=== PATIENT | male | born 1975 | race Caucasian/White ===

== ENCOUNTER 2018-03-18 11:10 | Emergency (ER) | payer OTHER ==
[~2018-03-18] VITALS: Ht 167.6 cm; Wt 94.8 kg
[2018-03-18] MEDS ORDERED: PRILOSEC 10MG C10 MG PO (11:20)
[2018-03-18] MEDS ORDERED: ZYRTEC10 M5 PO (11:20)
[2018-03-18 12:05] LABS: ABSOLUTE NEUTROPHILS 3.8 thou/uL (1.4-8.2); MCV 88.3 fL (80.0-100.0)
[2018-03-18 12:07] LABS: ANION GAP 10 mmol/L (7-16); BASOPHILS 0.4 % (0.0-2.0); BUN 13 mg/dL (7-18); CALCIUM 9.4 mg/dL (8.5-10.1); CHLORIDE 104 mmol/L (98-107); CO2 28 mmol/L (21-32); CREATININE 1.1 mg/dL (0.7-1.3); EOSINOPHILS 0.6 % (0.0-3.0); GLUCOSE 101 mg/dL (74-106); HEMATOCRIT 47.7 % (42.0-52.0); HEMOGLOBIN 16.5 gm/dL (14.0-18.0); LYMPHOCYTES 37.5 % (24.0-44.0); MCH 30.5 pg (26.0-34.0); MCHC 34.5 g/dL (28.0-37.0); MONOCYTES 8.3 % (1.0-8.0); PLATELET COUNT 292 thou/uL (150-400); POLYS 53.2 % (36.0-66.0); POTASSIUM 3.7 mmol/L (3.5-5.1); RDW 13.3 % (10.5-14.5); SODIUM 142 mmol/L (136-145); WBC 7.1 thou/uL (4.0-11.0)
[2018-03-18 12:08] LABS: URINE BILIRUBIN NEGATIVE (Negative); URINE BLOOD NEGATIVE (Negative); URINE CLARITY CLEAR; URINE COLOR YELLOW; URINE GLUCOSE-RANDOM* NEGATIVE (Negative); URINE KETONES NEGATIVE (Negative); URINE LEUKOCYTES-REFLEX NEGATIVE (Negative); URINE NITRITE-REFLEX NEGATIVE (Negative); URINE PROTEIN (DIPSTICK) NEGATIVE (Negative); URINE UROBILINOGEN 0.2 E.U./dl (0.2-1.0)
[2018-03-18 12:16] LABS: ALBUMIN 4.1 g/dL (3.4-5.0); MAGNESIUM 2.7 mg/dL (1.8-2.4); SGOT 70 U/L (15-37); SGPT 169 U/L (30-65); TOTAL BILIRUBIN 0.5 mg/dL (<0.1-1.0); TOTAL PROTEIN 8.1 g/dL (6.4-8.2); TROPONIN-I <0.06 ng/mL (<0.06)
[2018-03-18 12:22] LABS: AMP/METHAMP Negative (Negative); BARBITURATES Negative (Negative); BENZODIAZEPINES Negative (Negative); COCAINE Negative (Negative); METHADONE Negative (Negative); OPIATES Negative (Negative); PCP Negative (Negative)
[2018-03-18 13:08] VITALS: BP 110/72
--- NOTE | 2018-03-19 10:41 | EKG ---
[address] [place] [address] ELECTROCARDIOGRAM REPORT Name: SHRADDHA SMILEY Room #: DEP [facility]#: [id number] Admission: 03/18/18 Attend Phys: Discharge: 03/18/18 Date of : 79 Report #: [id number] THIS REPORT FOR: //name// [facility] ED Test Date: 2018-03-18 Test Time: 12:03:39 Pat Name: SHRADDHA SMILEY Department: Room: Gender: M [place] [employer]: [place] : 1975 Requested By: Jose Daniel Shipman Order Number: [id number] MD: Nj Whitney Measurements Intervals Newman Rate: 87 P: 54 IN: 162 QRS: -47 QRSD: 86 T: 30 QT: 358 QTc: 431 Interpretive Statements Sinus rhythm LAD, consider left anterior fascicular block Abnormal R-wave progression, late transition No previous ECG available for comparison Electronically Signed On 03-19-2018 10:40:59 MARKETING INFORMATION COORDINATOR by Nj Whitney [email or web address] <ELECTRONICALLY SIGNED> By: Nj Whitney MD 03/19/18 1040 1203 1203 MD VANESSA Curtis
== END 2018-03-18 13:10 | disposition home or self-care (01) ==
LOC: ER 11:10
PROVIDERS: Emergency Medicine
DX: F10.129 Alcohol abuse with intoxication, unspecified (principal); G47.10 Hypersomnia, unspecified; K21.9 Gastro-esophageal reflux disease without esophagitis; Z90.49 Acquired absence of other specified parts of digestive tract; Y90.0 Blood alcohol level of less than 20 mg/100 ml